=== PATIENT | male | born 1975 | race Caucasian/White ===

== ENCOUNTER 2021-01-28 17:46 | Inpatient (IN) ==
[2021-01-28] MEDS ORDERED: SODIUM CHLORIDE 0.9% 1000ML 1,000 ML IV ONE (19:17)
[2021-01-28] MEDS ORDERED: HYDROcodone/HOMATROPINE SYRUP 5MG/1.5MG 5ML UDP PO STA (19:43)
--- NOTE | 2021-01-28 19:57 | XRay Report ---
XR chest 1V portable HISTORY: SEPSIS COMPARISON: None. FINDINGS: There are patchy hazy bilateral airspace opacities, right greater than left. This is consis tent with a viral pneumonia. The heart is normal in size. No pleural effusions. No pneumothorax. IMPRESSION: Patchy hazy bilateral airspace opacities consistent with a multifocal pneumonia. ACT 112: Negative or not required by law. Electronically signed by: Emiliano Damon M.D. 01/28/2021 7:56 PM
[2021-01-28 19:58] LABS: Basophils # (auto) 0.02 K/uL (0-0.2); Basophils % (auto) 0.2 %; Eosinophils # (auto) 0.03 K/uL (0-0.5); Eosinophils % (auto) 0.4 %; Hematocrit (blood only) 43.3 % (42-52); Hemoglobin 15.8 g/dL (14.0-18.0); Immature Granulocytes # (auto) 0.04 K/uL (0.00-0.02); Immature Granulocytes % (auto) 0.5 %; Lymphocytes # (auto) 1.86 K/uL (1.2-3.4); Lymphocytes % (auto) 22.5 %; Mean Corpuscular Hemoglobin 31.1 pg (25-34); Mean Corpuscular Hgb Conc 36.5 g/dL (32-36); Mean Corpuscular Volume 85.2 fL (80-100); Mean Platelet Volume 9.6 fL (7.4-10.4); Monocytes # (auto) 0.77 K/uL (0.11-0.59); Monocytes % (auto) 9.3 %; Neutrophils # (auto) 5.55 K/uL (1.4-6.5); Neutrophils % (auto) 67.1 %; Platelet Count 245 K/uL (130-400); RDW Coefficient of Variation 12.8 % (11.5-14.5); RDW Standard Deviation 40.3 fL (36.4-46.3); Red Blood Count 5.08 M/uL (4.7-6.1); White Blood Count 8.27 K/uL (4.8-10.8)
[2021-01-28 20:10] LABS: Base Excess VBG 4.3 mEq/L; HCO3 VBG 29 mmol/L; Oxygen Saturation VBG < 60.0 %; PCO2 VBG 45 mmHg (38-50); PO2 VBG 29 mmHg; pH VBG 7.43 (7.36-7.41)
[2021-01-28 20:15] LABS: Alanine Aminotransferase 31 U/L (12-78); Albumin Level 3.4 gm/dl (3.4-5.0); Aspartate Aminotransferase 20 U/L (15-37); BUN Creatinine Ratio 16.7 (10-20); Blood Urea Nitrogen 19 mg/dl (7-18); Calcium 9.2 mg/dl (8.5-10.1); Carbon Dioxide 29 mmol/L (21-32); Chloride 105 mmol/L (98-107); Est GFR (African American) 90.8; Est GFR (Non-African American) 78.3; Glucose 97 mg/dl (70-99); Magnesium 2.4 mg/dl (1.8-2.4); Potassium 3.9 mmol/L (3.5-5.1); Sodium 140 mmol/L (136-145)
[2021-01-28 20:19] LABS: Partial Thromboplastin Ratio 0.9; Partial Thromboplastin Time 24.8 Seconds (21.0-31.0); Prothrombin Time 10.3 Seconds (9.0-12.0)
[2021-01-28 20:20] LABS: Albumin Globulin Ratio 0.8 (0.9-2); Alkaline Phosphatase 62 U/L (45-117); Bilirubin,Total 0.5 mg/dl (0.2-1); Globulin 4.1 gm/dl (2.5-4.0); Total Protein 7.5 gm/dl (6.4-8.2); Troponin I < 0.015 ng/ml (0-0.045)
[2021-01-28] MEDS ORDERED: dexAMETHasone 6 MG in SYRINGE 0 ML IV ONE (20:42)
[2021-01-28] MEDS ORDERED: SODIUM CHLORIDE 0.9% 1000ML 1,000 ML IV STA (20:43)
[2021-01-28] MEDS ORDERED: ONDANSETRON INJ 2 MG/ML 2 ML VIAL IV STA (20:43)
[2021-01-28] MEDS ORDERED: MoRPHine SULFATE 4 MG/ML 1 ML CARP\\VIAL IV STA (20:43)
[2021-01-28] MEDS ORDERED: DEXAMETHASONE SOD INJ 4 MG/ML VIAL ONE (20:45)
[2021-01-28] MEDS ORDERED: OPTIRAY 320 125ml IV ONE (21:47)
[2021-01-29 00:17] LABS: Influenza A virus by PCR Negative (Neg); Influenza B virus by PCR Negative (Neg); RSV by PCR Negative (Neg)
[2021-01-29 00:23] LABS: SARS CoV2 RNA(COVID-19) InHosp POSITIVE (Negative)
--- NOTE | 2021-01-29 02:00 | Emergency Department Note ---
History of Present Illness General Chief Complaint: Shortness of Breath/Dyspnea Stated Complaint: COVID+ ON WEDNESDAY Time Seen by Provider: 01/28/21 19:16 History of Present Illness Provider Complaint: shortness of breath, cough and chest pain Onset (ago): day(s) (11) Severity: moderate Consistency/Duration: + intermittent Maximum Pain Intensity: 7 Current Pain Intensity: 5 Relieved By: + nothing Exacerbated By: + coughing Context: + recent illness (Diagnosed with COVID-19 11 days ago) Associated symptoms: + chest pain, + pain with inspiration, + fever, + cough, + sputum production, + hemoptysis and + nausea/vomiting; no syncope, no abdominal pain and no rash HPI Narrative: Patient reports he has a home pulse oximeter which has been reading below 90% so he decided come to the emergency department. Home Medications Medication Instructions Recorded Confirmed Type albuterol sulfate 2 puff INHALATION QID PRN 01/28/21 01/28/21 History ibuprofen [Advil] 600 - 800 mg PO Q6H PRN 01/28/21 01/28/21 History ondansetron 8 mg TRANSLINGUAL BID PRN 01/28/21 01/28/21 History Allergies Allergy/AdvReac Type Severity Reaction Status Date / Time Penicillins Allergy Severe Hives Verified 01/28/21 22:28 Past Med/Surg History Medical History (Updated 01/29/21 @ 02:00 by Sreedhar Macdonald) No pertinent family history No pertinent past medical history Surgical History (Updated 01/29/21 @ 01:54 by Sreedhar Macdonald) No pertinent past surgical history Social History Smoking Status: Never smoker Feels Safe at Home: Yes Review of Systems A total of 10 systems reviewed and were otherwise negative Physical Exam Vital Signs: Vital Signs - 24 hr 01/28/21 17:54 01/28/21 20:34 01/28/21 20:36 Temperature 36.7 C Temperature Source Oral Pulse Rate 130 H Pulse Rate [Finger ] Pulse Rate from Sp O2 Sensor Respiratory Rate 20 Respiratory Effort / Characteristics Non-Labored Sponta neous Non-Labored Sponta neous Respiratory Depth Normal Respiratory Patter n Regular Blood Pressure 133/81 Blood Pressure [Ri ght Arm] Blood Pressure Linda n 98 Blood Pressure Linda n [Right Arm] Pulse Oximetry 96 87 L Oxygen Delivery Me thod Room Air Room Air Room Air Oxygen Flow Rate Sepsis Recent Feve r Within 48 Hours No Sepsis New/Unexpla ined Change in Men emerald Status No Sepsis Action Take n by Nursing No Action Required 01/28/21 20:46 01/28/21 21:30 01/28/21 21:45 Temperature Temperature Source Pulse Rate Pulse Rate [Finger ] 96 H 95 H Pulse Rate from Sp O2 Sensor Respiratory Rate 23 28 H Respiratory Effort / Characteristics Non-Labored Sponta neous Non-Labored Sponta neous Respiratory Depth Normal Normal Respiratory Patter n Regular Regular Blood Pressure Blood Pressure [Ri ght Arm] 145/92 H 150/96 H Blood Pressure Linda n Blood Pressure Linda n [Right Arm] 109 114 Pulse Oximetry 99 99 Oxygen Delivery Me thod Room Air Nasal Cannula Nasal Cannula Oxygen Flow Rate 2 2 Sepsis Recent Feve r Within 48 Hours Sepsis New/Unexpla ined Change in Men emerald Status Sepsis Action Take n by Nursing 01/28/21 21:50 01/28/21 22:00 01/28/21 22:27 Temperature Temperature Source Pulse Rate 94 H 99 H 93 H Pulse Rate [Finger ] Pulse Rate from Sp O2 Sensor 92 H Respiratory Rate 22 20 23 Respiratory Effort / Characteristics Respiratory Depth Respiratory Patter n Blood Pressure 139/88 Blood Pressure [Ri ght Arm] Blood Pressure Linda n 105 Blood Pressure Linda n [Right Arm] Pulse Oximetry 98 Oxygen Delivery Me thod Nasal Cannula Nasal Cannula Oxygen Flow Rate 2 2 Sepsis Recent Feve r Within 48 Hours Sepsis New/Unexpla ined Change in Men emerald Status Sepsis Action Take n by Nursing 01/28/21 22:30 01/28/21 22:45 01/28/21 23:00 Temperature Temperature Source Pulse Rate 79 79 77 Pulse Rate [Finger ] Pulse Rate from Sp O2 Sensor 81 81 79 Respiratory Rate 24 20 25 H Respiratory Effort / Characteristics Respiratory Depth Respiratory Patter n Blood Pressure 135/90 135/97 149/108 H Blood Pressure [Ri ght Arm] Blood Pressure Linda n 105 109 121 Blood Pressure Linda n [Right Arm] Pulse Oximetry 99 99 99 Oxygen Delivery Me thod Oxygen Flow Rate Sepsis Recent Feve r Within 48 Hours Sepsis New/Unexpla ined Change in Men emerald Status Sepsis Action Take n by Nursing 01/28/21 23:15 01/28/21 23:30 01/28/21 23:45 Temperature Temperature Source Pulse Rate 75 74 81 Pulse Rate [Finger ] Pulse Rate from Sp O2 Sensor 75 77 83 Respiratory Rate 24 23 22 Respiratory Effort / Characteristics Respiratory Depth Respiratory Patter n Blood Pressure 150/101 H 155/110 H 132/98 Blood Pressure [Ri ght Arm] Blood Pressure Linda n 117 125 109 Blood Pressure Linda n [Right Arm] Pulse Oximetry 98 99 99 Oxygen Delivery Me thod Oxygen Flow Rate Sepsis Recent Feve r Within 48 Hours Sepsis New/Unexpla ined Change in Men emerald Status Sepsis Action Take n by Nursing 01/29/21 00:00 01/29/21 00:30 Temperature Temperature Source Pulse Rate 82 83 Pulse Rate [Finger ] Pulse Rate from Sp O2 Sensor 85 84 Respiratory Rate 17 19 Respiratory Effort / Characteristics Respiratory Depth Respiratory Patter n Blood Pressure 112/89 138/93 Blood Pressure [Ri ght Arm] Blood Pressure Linda n 96 108 Blood Pressure Linda n [Right Arm] Pulse Oximetry 98 98 Oxygen Delivery Me thod Oxygen Flow Rate Sepsis Recent Feve r Within 48 Hours Sepsis New/Unexpla ined Change in Men emerald Status Sepsis Action Take n by Nursing Physical Exam: Physical Exam GENERAL: He is oriented to person, place, and time. He appears well-developed and well-nourished. He does not appear distressed. HENT: Exam performed. - Head: Normocephalic and atraumatic. - Right Ear: External ear normal. No mastoid tenderness. - Left Ear: External ear normal. No mastoid tenderness. - Mouth/Throat: The oropharynx is clear and moist. No trismus in the jaw. No dental abscesses or uvula swelling. No oropharyngeal exudate or tonsillar abscesses. EYES: Conjunctivae and EOM are normal. Pupils are equal, round, and reactive to light. Right eye exhibits no discharge. Left eye exhibits no discharge. No scleral icterus. NECK: Normal range of motion. Neck supple. No JVD present. No spinous process tenderness present. No carotid bruit present. No rigidity. No tracheal deviation and normal range of motion present. No Brudzinski's sign and no Kernig's sign noted. CV: Tachycardic rate, regular rhythm, normal heart sounds and intact distal pulses. There is no peripheral edema. Palpable radial pulses bue. PULM/CHEST: Effort normal and breath sounds normal. No respiratory distress. No stridor. He has no wheezes. He has no rales. - Chest Wall: He exhibits no tenderness. ABD: The abdomen is soft. Bowel sounds are normal. He has no distension. No mass is present. There is no tenderness. There is no rebound, no guarding, no Rivera's sign and no tenderness at McBurney's point. Rovsig negative. MUSC/SKEL: Normal range of motion. There is no peripheral edema, tenderness or deformity. LYMPH: No cervical adenopathy. NEURO: He is alert and oriented to person, place, and time. He has normal strength. No cranial nerve deficit or sensory deficit. Coordination and gait normal. GCS eye subscore is 4. GCS verbal subscore is 5. GCS motor subscore is 6. Cerebellar tests wnl. SKIN: Skin is warm and dry. He is not diaphoretic. PSYCH: He has a normal mood and affect. Behavior is normal. Judgment and thought content normal. Course Course 1915: The patient was evaluated in room C5. A complete history and physical exam was performed Cardiac monitoring: An order was placed for continuous cardiac monitoring. The monitor shows a rate of 95 with sinus rhythm Patient was seen in full airborne precautions. Patient was seen in N95's, gloves, gowns, face shield by myself and staff. 2044: Patient had low oxygen saturation on ambulation. Patient was started on supplemental oxygen via nasal cannula which improved his oxygen saturation. Decadron 6 mg IV push ordered for the patient. 2254: Vital signs stable on supplemental oxygen. Labs are within normal limits. Imaging is negative for PE. Patient be admitted to [facility] any hospitalist team Dr. Siu notified. Administered Medications Discontinued Medications Dexamethasone (Dexamethasone Sod Inj 4 Mg/Ml Vial) Confirm Administered Dose 8 mg .ROUTE .STK-MED ONE Stop: 01/28/21 20:46 Last Admin: 01/28/21 20:50 Dose: 6 mg Documented by: [id number] Hydrocodone Bit/Homatropine Methylb (Hydrocodone/Homatropine Syrup 5mg/1.5mg 5ml Udp) 5 ml PO NOW STA Stop: 01/28/21 19:44 Last Admin: 01/28/21 20:31 Dose: 5 ml Documented by: [id number] Sodium Chloride (Nss 1000ml) 1,000 mls @ 999 mls/hr IV .Q1H1M ONE Stop: 01/28/21 20:17 Last Infusion: 01/28/21 21:32 Dose: 0 mls/hr Documented by: [id number] Admin: 01/28/21 20:31 Dose: 999 mls/hr Documented by: [id number] Dexamethasone 6 mg/ Syringe 1.5 mls @ 1 mls/min IV ONE ONE Stop: 01/28/21 20:43 Last Admin: 01/28/21 20:50 Dose: Not Given Documented by: [id number] Sodium Chloride (Nss 1000ml) 1,000 mls @ 999 mls/hr IV .Q1H1M STA Stop: 01/28/21 21:43 Last Admin: 01/28/21 21:22 Dose: Not Given Documented by: [id number] Ioversol (Optiray 320 125ml) 117 ml IV ONCE ONE Stop: 01/28/21 21:48 Last Admin: 01/28/21 21:48 Dose: 117 ml Documented by: [id number] Morphine Sulfate (Morphine Sulfate 4 Mg/Ml 1 Ml Carp\Vial) 4 mg IV NOW STA Stop: 01/28/21 20:44 Last Admin: 01/28/21 20:52 Dose: Not Given Documented by: [id number] Ondansetron HCl (Ondansetron Inj 2 Mg/Ml 2 Ml Vial) 4 mg IV NOW STA Stop: 01/28/21 20:44 Last Admin: 01/28/21 20:56 Dose: 4 mg Documented by: [id number] Medical Decision Making Laboratory Data Result diagrams: 01/28/21 19:44 01/28/21 19:44 Lab Results 01/28/21 01/28/21 01/28/21 Range/Units 19:44 19:44 19:44 WBC 8.27 (4.8-10.8) K/uL RBC 5.08 (4.7-6.1) M/uL Hgb 15.8 (14.0-18.0) g/dL Hct 43.3 (42-52) % MCV 85.2 (80-100) fL MCH 31.1 (25-34) pg MCHC 36.5 H (32-36) g/dL RDW Std Deviation 40.3 (36.4-46.3) fL RDW Coeff of Felicitas 12.8 (11.5-14.5) % Plt Count 245 (130-400) K/uL MPV 9.6 (7.4-10.4) fL Immature Gran % (Auto) 0.5 % Neut % (Auto) 67.1 % Lymph % (Auto) 22.5 % Wilkes % (Auto) 9.3 % Eos % (Auto) 0.4 % Baso % (Auto) 0.2 % Neut # (Auto) 5.55 (1.4-6.5) K/uL Lymph # (Auto) 1.86 (1.2-3.4) K/uL Wilkes # (Auto) 0.77 H (0.11-0.59) K/uL Eos # (Auto) 0.03 (0-0.5) K/uL Baso # (Auto) 0.02 (0-0.2) K/uL Immature Gran # (Auto) 0.04 H (0.00-0.02) K/uL PT 10.3 (9.0-12.0) Seconds INR 1.0 (0.9-1.1) APTT 24.8 (21.0-31.0) Seconds PTT Ratio 0.9 VBG pH 7.43 H (7.36-7.41) VBG pCO2 45 (38-50) mmHg VBG pO2 29 mmHg VBG HCO3 29 mmol/L VBG O2 Saturation < 60.0 % VBG Base Excess 4.3 mEq/L Barometric Pressure 735.4 mm/Hg Sodium (136-145) mmol/L Potassium (3.5-5.1) mmol/L Chloride (98-107) mmol/L Carbon Dioxide (21-32) mmol/L Anion Gap (3-11) BUN (7-18) mg/dl Creatinine (0.6-1.4) mg/dl Est Cr Clr Drug Dosing Est GFR ( Amer) Est GFR (Non-Af Amer) BUN/Creatinine Ratio (10-20) Glucose (70-99) mg/dl Lactate (0.4-2.0) mmol/L Calcium (8.5-10.1) mg/dl Magnesium (1.8-2.4) mg/dl Total Bilirubin (0.2-1) mg/dl AST (15-37) U/L ALT (12-78) U/L Alkaline Phosphatase (45-117) U/L Troponin I (0-0.045) ng/ml Total Protein (6.4-8.2) gm/dl Albumin (3.4-5.0) gm/dl Globulin (2.5-4.0) gm/dl Albumin/Globulin Ratio (0.9-2) Procalcitonin (0-0.5) ng/ml COVID-19 Eval Order SARS-CoV-2 (PCR) (Negative) Influenza Type A (PCR) (Neg) Influenza Type B (PCR) (Neg) RSV (RT-PCR) (Neg) 01/28/21 01/28/21 01/28/21 Range/Units 19:44 19:44 19:44 WBC (4.8-10.8) K/uL RBC (4.7-6.1) M/uL Hgb (14.0-18.0) g/dL Hct (42-52) % MCV (80-100) fL MCH (25-34) pg MCHC (32-36) g/dL RDW Std Deviation (36.4-46.3) fL RDW Coeff of Felicitas (11.5-14.5) % Plt Count (130-400) K/uL MPV (7.4-10.4) fL Immature Gran % (Auto) % Neut % (Auto) % Lymph % (Auto) % Wilkes % (Auto) % Eos % (Auto) % Baso % (Auto) % Neut # (Auto) (1.4-6.5) K/uL Lymph # (Auto) (1.2-3.4) K/uL Wilkes # (Auto) (0.11-0.59) K/uL Eos # (Auto) (0-0.5) K/uL Baso # (Auto) (0-0.2) K/uL Immature Gran # (Auto) (0.00-0.02) K/uL PT (9.0-12.0) Seconds INR (0.9-1.1) APTT (21.0-31.0) Seconds PTT Ratio VBG pH (7.36-7.41) VBG pCO2 (38-50) mmHg VBG pO2 mmHg VBG HCO3 mmol/L VBG O2 Saturation % VBG Base Excess mEq/L Barometric Pressure mm/Hg Sodium 140 (136-145) mmol/L Potassium 3.9 (3.5-5.1) mmol/L Chloride 105 (98-107) mmol/L Carbon Dioxide 29 (21-32) mmol/L Anion Gap 6.0 (3-11) BUN 19 H (7-18) mg/dl Creatinine 1.14 (0.6-1.4) mg/dl Est Cr Clr Drug Dosing Not Reportable Est GFR ( Amer) 90.8 Est GFR (Non-Af Amer) 78.3 BUN/Creatinine Ratio 16.7 (10-20) Glucose 97 (70-99) mg/dl Lactate 1.7 (0.4-2.0) mmol/L Calcium 9.2 (8.5-10.1) mg/dl Magnesium 2.4 (1.8-2.4) mg/dl Total Bilirubin 0.5 (0.2-1) mg/dl AST 20 (15-37) U/L ALT 31 (12-78) U/L Alkaline Phosphatase 62 (45-117) U/L Troponin I < 0.015 (0-0.045) ng/ml Total Protein 7.5 (6.4-8.2) gm/dl Albumin 3.4 (3.4-5.0) gm/dl Globulin 4.1 H (2.5-4.0) gm/dl Albumin/Globulin Ratio 0.8 L (0.9-2) Procalcitonin 0.07 (0-0.5) ng/ml COVID-19 Eval Order SARS-CoV-2 (PCR) (Negative) Influenza Type A (PCR) (Neg) Influenza Type B (PCR) (Neg) RSV (RT-PCR) (Neg) 01/28/21 01/28/21 Range/Units 23:20 23:20 WBC (4.8-10.8) K/uL RBC (4.7-6.1) M/uL Hgb (14.0-18.0) g/dL Hct (42-52) % MCV (80-100) fL MCH (25-34) pg MCHC (32-36) g/dL RDW Std Deviation (36.4-46.3) fL RDW Coeff of Felicitas (11.5-14.5) % Plt Count (130-400) K/uL MPV (7.4-10.4) fL Immature Gran % (Auto) % Neut % (Auto) % Lymph % (Auto) % Wilkes % (Auto) % Eos % (Auto) % Baso % (Auto) % Neut # (Auto) (1.4-6.5) K/uL Lymph # (Auto) (1.2-3.4) K/uL Wilkes # (Auto) (0.11-0.59) K/uL Eos # (Auto) (0-0.5) K/uL Baso # (Auto) (0-0.2) K/uL Immature Gran # (Auto) (0.00-0.02) K/uL PT (9.0-12.0) Seconds INR (0.9-1.1) APTT (21.0-31.0) Seconds PTT Ratio VBG pH (7.36-7.41) VBG pCO2 (38-50) mmHg VBG pO2 mmHg VBG HCO3 mmol/L VBG O2 Saturation % VBG Base Excess mEq/L Barometric Pressure mm/Hg Sodium (136-145) mmol/L Potassium (3.5-5.1) mmol/L Chloride (98-107) mmol/L Carbon Dioxide (21-32) mmol/L Anion Gap (3-11) BUN (7-18) mg/dl Creatinine (0.6-1.4) mg/dl Est Cr Clr Drug Dosing Est GFR ( Amer) Est GFR (Non-Af Amer) BUN/Creatinine Ratio (10-20) Glucose (70-99) mg/dl Lactate (0.4-2.0) mmol/L Calcium (8.5-10.1) mg/dl Magnesium (1.8-2.4) mg/dl Total Bilirubin (0.2-1) mg/dl AST (15-37) U/L ALT (12-78) U/L Alkaline Phosphatase (45-117) U/L Troponin I (0-0.045) ng/ml Total Protein (6.4-8.2) gm/dl Albumin (3.4-5.0) gm/dl Globulin (2.5-4.0) gm/dl Albumin/Globulin Ratio (0.9-2) Procalcitonin (0-0.5) ng/ml COVID-19 Eval Order CovFluRsv at [facility] SARS-CoV-2 (PCR) POSITIVE A* (Negative) Influenza Type A (PCR) Negative (Neg) Influenza Type B (PCR) Negative (Neg) RSV (RT-PCR) Negative (Neg) Imaging Data Radiologist's Impression: XR chest 1V portable HISTORY: SEPSIS COMPARISON: None. FINDINGS: There are patchy hazy bilateral airspace opacities, right greater than left. This is consistent with a viral pneumonia. The heart is normal in size. No pleural effusions. No pneumothorax. IMPRESSION: Patchy hazy bilateral airspace opacities consistent with a multifocal pneumonia. ACT 112: Negative or not required by law. Electronically signed by: Emiliano Damon M.D. 01/28/2021 7:56 PM Dictated: 01/28/211954Transcribed: 01/28/211954 Preliminary Findings Only See Final Report For Complete Findings CTA CHEST: No pulmonary embolus identified. No aortic aneurysm or dissection. Patchy groundglass opacities and densities throughout the lungs, concerning for Covid 19 infection. Trace left pleural effusion. Nonspecific mildly prominent mediastinal and hilar lymph nodes. Radiologist: Tristian Giles M.D. Study ready at 21:56 and initial results transmitted at 22:00 ECG Data Interpretation: EKG at 2028: Sinus rhythm with rate 95. CO and QTc intervals are within normal limits. QRS 72. No ST elevation or ST depression. T wave inversion in lead III only. [facility] Narrative 1915: The patient was evaluated in room C5. A complete history and physical exam was performed Cardiac monitoring: An order was placed for continuous cardiac monitoring. The monitor shows a rate of 95 with sinus rhythm Patient was seen in full airborne precautions. Patient was seen in N95's, gloves, gowns, face shield by myself and staff. 2044: Patient had low oxygen saturation on ambulation. Patient was started on supplemental oxygen via nasal cannula which improved his oxygen saturation. Decadron 6 mg IV push ordered for the patient. 2254: Vital signs stable on supplemental oxygen. Labs are within normal limits. Imaging is negative for PE. Patient be admitted to [facility] hospitalist team Dr. Siu notified. Impression & Plan Pneumonia due to 2019 novel coronavirus, Hypoxia Critical Care Time Critical Care Time: Yes Total Critical Care Time: 43 I have personally spent greater than 43 minutes of critical care time in the direct management of this patient. This includes bedside care, interpretation of diagnostic studies, and testing, discussion with consultants, patient, and family members, and other required patient management activities. This 43 minutes is in excess of all separately billable procedures. Discharge Plan Visit Data Chief Complaint: Shortness of Breath/Dyspnea Stated Complaint: COVID+ ON WEDNESDAY ED Provider: Sreedhar Macdonald Discharge Problem: Pneumonia due to 2019 novel coronavirus, Hypoxia Patient Disposition: Admitted As Inpatient Forms Stand Alone Forms: [facility] Prescriptions Prescriptions: No Action ondansetron 8 mg tablet,disintegrating 8 mg translingual BID PRN (Reason: Nausea) RF: 0 ibuprofen [Advil] 200 mg Tablet 600 - 800 mg PO Q6H PRN (Reason: headache/fever) RF: 0 albuterol sulfate 90 mcg/actuation HFA aerosol inhaler 2 puff INHALATION QID PRN (Reason: Wheezing) RF: 0 Referrals Referrals: Alejandro Mir [Primary Care Provider] -
--- NOTE | 2021-01-29 02:16 | History & Physical Report ---
Date of Service January 29, 2021 Assessment & Plan (1) Pneumonia due to 2019 novel coronavirus: COVID-19 pneumonia with hypoxia- Dexamethasone 6 mg IV every morning Duonebs every 4 hours while awake and every 2 hours when necessary. Guaifenesin extended release 600 mg p.o. twice daily Zinc sulfate 220 mg p.o. every morning Vitamin D 2000 international units p.o. every morning Azithromycin 500 mg IV daily Hycodan syrup, 5 mL p.o. every 4 hours as needed cough Nasal cannula oxygen, titrate to keep pulse ox 94 to 95% Present on Admission?: Yes (2) Hypoxia: See above Present on Admission?: Yes History of Present Illness Chief Complaint: Patient presents to the emergency department with complaint of cough, shortness of breath and chest pain with inspiration Primary Care Provider: Alejandro Mir The patient is a 45-year-old male who was diagnosed with COVID-19 pneumonia 11 days ago, was placed on a course of steroids, antibiotic and inhaler. He reports that he briefly had some improvement, but never returned to normalcy, and presents to the emergency department today with persistent cough, pleuritic chest pain and shortness of breath. Allergies Allergy/AdvReac Type Severity Reaction Status Date / Time Penicillins Allergy Severe Hives Verified 01/28/21 22:28 Home Medications Medication Instructions Recorded Confirmed Type albuterol sulfate 2 puff INHALATION QID PRN 01/28/21 01/28/21 History ibuprofen [Advil] 600 - 800 mg PO Q6H PRN 01/28/21 01/28/21 History ondansetron 8 mg TRANSLINGUAL BID PRN 01/28/21 01/28/21 History Past Med/Surg History Medical History (Updated 01/29/21 @ 02:00 by [facility]) No pertinent family history No pertinent past medical history Surgical History (Updated 01/29/21 @ 01:54 by [facility]) No pertinent past surgical history Social History Smoking Status: Never smoker Feels Safe at Home: Yes Review of Systems Review of Systems: The patient denies palpitations, lower extremity swelling, sore throat, fevers, chills, sweats, nausea, vomiting, diarrhea , constipation, abdominal pain, pelvic pain, blood in urine or stool, dysuria, urinary frequency or urgency, lightheadedness, dizziness, headache, memory loss, loss of consciousness, rash, abnormal bruising or bleeding, imbalance, focal weakness, numbness or tingling in arms or legs, generalized arthralgias or myalgias, back or neck pain, or night sweats. The review of systems is otherwise negative other than for that already noted above, and at least 10 systems have been reviewed. Physical Exam Physical Exam: The patient is awake, alert and oriented 3, well developed and well nourished, normocephalic and atraumatic, lying in bed and in no acute distress. HEENT--PERRL, EOMI, mucous membranes and oropharynx normal. Neck--supple. No JVD. No bruits. Thyroid normal, trachea midline, no adenopathy. Heart--normal S1 and S2. No murmurs, rubs or gallops. Lungs--clear bilaterally, no respiratory distress, no accessory muscle use. Abdomen--normal bowel sounds and soft. Nontender. Nondistended. Extremities--no cyanosis or clubbing. No edema. Dermatologic--normal skin turgor, normal color, no abnormal lymph nodes, no rash. Neurologic--cranial nerves II through XII grossly intact. Rheumatologic--normal range of motion. Psychiatric--normal affect. Results & Data Results & Data ([facility]) Vital Signs (Past 12 Hours) Vital Signs Temp Pulse Pulse Resp BP BP Pulse Ox 01/29/21 00:30 83 19 138/93 98 01/29/21 00:00 82 17 112/89 98 01/28/21 23:45 81 22 132/98 99 01/28/21 23:30 74 23 155/110 H 99 01/28/21 23:15 75 24 150/101 H 98 01/28/21 23:00 77 25 H 149/108 H 99 01/28/21 22:45 79 20 135/97 99 01/28/21 22:30 79 24 135/90 99 01/28/21 22:27 93 H 23 139/88 98 01/28/21 22:00 99 H 20 01/28/21 21:50 94 H 22 01/28/21 21:30 95 H 28 H 150/96 H 99 01/28/21 20:46 96 H 23 145/92 H 99 01/28/21 20:36 87 L 01/28/21 17:54 98.1 F 130 H 20 133/81 96 Laboratory Results Laboratory Results WBC 8.27 K/uL (4.8-10.8) 01/28/21 19:44 RBC 5.08 M/uL (4.7-6.1) 01/28/21 19:44 Hgb 15.8 g/dL (14.0-18.0) 01/28/21 19:44 Hct 43.3 % (42-52) 01/28/21 19:44 MCV 85.2 fL (80-100) 01/28/21 19:44 MCH 31.1 pg (25-34) 01/28/21 19:44 MCHC 36.5 g/dL (32-36) H 01/28/21 19:44 RDW Std Deviation 40.3 fL (36.4-46.3) 01/28/21 19:44 RDW Coeff of Felicitas 12.8 % (11.5-14.5) 01/28/21 19:44 Plt Count 245 K/uL (130-400) 01/28/21 19:44 MPV 9.6 fL (7.4-10.4) 01/28/21 19:44 Immature Gran % (Auto) 0.5 % 01/28/21 19:44 Neut % (Auto) 67.1 % 01/28/21 19:44 Lymph % (Auto) 22.5 % 01/28/21 19:44 [place]ville % (Auto) 9.3 % 01/28/21 19:44 Eos % (Auto) 0.4 % 01/28/21 19:44 Baso % (Auto) 0.2 % 01/28/21 19:44 Neut # (Auto) 5.55 K/uL (1.4-6.5) 01/28/21 19:44 Lymph # (Auto) 1.86 K/uL (1.2-3.4) 01/28/21 19:44 Granville # (Auto) 0.77 K/uL (0.11-0.59) H 01/28/21 19:44 Eos # (Auto) 0.03 K/uL (0-0.5) 01/28/21 19:44 Baso # (Auto) 0.02 K/uL (0-0.2) 01/28/21 19:44 Immature Gran # (Auto) 0.04 K/uL (0.00-0.02) H 01/28/21 19:44 PT 10.3 Seconds (9.0-12.0) 01/28/21 19:44 INR 1.0 (0.9-1.1) 01/28/21 19:44 APTT 24.8 Seconds (21.0-31.0) 01/28/21 19:44 PTT Ratio 0.9 01/28/21 19:44 VBG pH 7.43 (7.36-7.41) H 01/28/21 19:44 VBG pCO2 45 mmHg (38-50) 01/28/21 19:44 VBG pO2 29 mmHg 01/28/21 19:44 VBG HCO3 29 mmol/L 01/28/21 19:44 VBG O2 Saturation < 60.0 % 01/28/21 19:44 VBG Base Excess 4.3 mEq/L 01/28/21 19:44 Barometric Pressure 735.4 mm/Hg 01/28/21 19:44 Sodium 140 mmol/L (136-145) 01/28/21 19:44 Potassium 3.9 mmol/L (3.5-5.1) 01/28/21 19:44 Chloride 105 mmol/L (98-107) 01/28/21 19:44 Carbon Dioxide 29 mmol/L (21-32) 01/28/21 19:44 Anion Gap 6.0 (3-11) 01/28/21 19:44 BUN 19 mg/dl (7-18) H 01/28/21 19:44 Creatinine 1.14 mg/dl (0.6-1.4) 01/28/21 19:44 Est Cr Clr Drug Dosing Not Reportable 01/28/21 19:44 Est GFR ( Amer) 90.8 01/28/21 19:44 Est GFR (Non-Af Amer) 78.3 01/28/21 19:44 BUN/Creatinine Ratio 16.7 (10-20) 01/28/21 19:44 Glucose 97 mg/dl (70-99) 01/28/21 19:44 Lactate 1.7 mmol/L (0.4-2.0) 01/28/21 19:44 Calcium 9.2 mg/dl (8.5-10.1) 01/28/21 19:44 Magnesium 2.4 mg/dl (1.8-2.4) 01/28/21 19:44 Total Bilirubin 0.5 mg/dl (0.2-1) 01/28/21 19:44 AST 20 U/L (15-37) 01/28/21 19:44 ALT 31 U/L (12-78) 01/28/21 19:44 Alkaline Phosphatase 62 U/L (45-117) 01/28/21 19:44 Troponin I < 0.015 ng/ml (0-0.045) 01/28/21 19:44 Total Protein 7.5 gm/dl (6.4-8.2) 01/28/21 19:44 Albumin 3.4 gm/dl (3.4-5.0) 01/28/21 19:44 Globulin 4.1 gm/dl (2.5-4.0) H 01/28/21 19:44 Albumin/Globulin Ratio 0.8 (0.9-2) L 01/28/21 19:44 Procalcitonin 0.07 ng/ml (0-0.5) 01/28/21 19:44 COVID-19 Eval Order CovFluRsv at [facility] 01/28/21 23:20 SARS-CoV-2 (PCR) POSITIVE (Negative) A* 01/28/21 23:20 Influenza Type A (PCR) Negative (Neg) 01/28/21 23:20 Influenza Type B (PCR) Negative (Neg) 01/28/21 23:20 RSV (RT-PCR) Negative (Neg) 01/28/21 23:20 Diagnostic Findings [facility], [phone] XRay Report Patient: JESSICA CAMPBELLAdmit Date: 01/28/21MR#: [id number]: [id number] [facility] ID:[id number]: Date: 1975City Zip: [place] [address]Ivr: 45Location: EDSex: MRoom/Bed:Att Phy:Diagnosis: COVID+ ON Phy: PCP,NOService Date: 01/28/21Fam Phy:Interpreting Phy: Emiliano Damon MDAdmit Phy: Ordering Phy: Sreedhar Macdonald MD cc: ~ XR chest 1V portable HISTORY: SEPSIS COMPARISON: None. FINDINGS: There are patchy hazy bilateral airspace opacities, right greater than left. This is consistent with a viral pneumonia. The heart is normal in size. No pleural effusions. No pneumothorax. IMPRESSION: Patchy hazy bilateral airspace opacities consistent with a multifocal pneumonia. ACT 112: Negative or not required by law. Electronically signed by: Emiliano Damon M.D. 01/28/2021 7:56 PM Dictated: 01/28/211954Transcribed: 01/28/211954 [facility] Patient: JESSICA CAMPBELL (Male) : 79 Status: ER Date: 01/28/21 21:49 Room #: History: SOB COVID + Slices: 764 Priors: Tech: Jason Hunt @ [id number] Exams: CTA CHEST Contrast: IV Amt: 117 Accession Numbers: [id number] Preliminary Findings Only See Final Report For Complete Findings CTA CHEST: No pulmonary embolus identified. No aortic aneurysm or dissection. Patchy groundglass opacities and densities throughout the lungs, concerning for Covid 19 infection. Trace left pleural effusion. Nonspecific mildly prominent mediastinal and hilar lymph nodes. Radiologist: Tristian Giles M.D. Study ready at 21:56 and initial results transmitted at 22:00 *This report constitutes a preliminary interpretation only. Non-acute findings felt to be unrelated to the clinical presentation may not be discussed in this report. The study will be interpreted and a final report will be generated by the local Radiologist the following shift. To reach the hospital radiology department call [phone]. If a discrepancy is found between the preliminary and final interpretations of this study, please notify us via our Client Portal at [email or web address] under QA Exams.You can also fax this report with a description of the discrepancy, or include the final report, to our daytime fax number [phone].If faxing, please indicate the severity of discrepancy using one of the following categories: [ ] 1 - Agree/Informational [ ] 2 - Unlikely to Affect Management [ ] 3 - Possible Eventual Change of Management [ ] 4 - Probable Immediate Change of Management For all other patient related information, please fax us at [phone]. [id number] Code Status & VTE Plan Code Status Full code VTE Prophylaxis Plan VTE Prophylaxis will be ordered: Yes PG Care Time/CCT Total # of Minutes Spent Total Time Spent with Patient: Total time spent is greater than 50% in coordination of care (as documented) at patient's floor/unit and/or counseling patient: Coding Level of Care Code 52648 Initial Inpt Care Lvl 2 Diagnoses Pneumonia due to 2019 novel coronavirus U07.1; J12.82 Hypoxia R09.02
--- NOTE | 2021-01-29 03:01 | Billing Data ---
Date of Service January 29, 2021 Coding Level of Care Code 43560 Initial Inpt Care Lvl 2
[2021-01-29] MEDS ORDERED: ONDANSETRON INJ 2 MG/ML 2 ML VIAL IV PRN (04:23)
[2021-01-29] MEDS ORDERED: HYDROcodone/HOMATROPINE SYRUP 5MG/1.5MG 5ML UDP PO PRN (04:23)
[2021-01-29] MEDS ORDERED: ALBUT/IPRATROP 3MG/0.5MG NEB 3 ML VIAL NEB SCH (07:00)
--- NOTE | 2021-01-29 08:20 | CT Scan Report ---
CT ANGIOGRAPHY OF THE CHEST, PULMONARY EMBOLUS PROTOCOL CLINICAL HISTORY: Cough. Shortness of breath. Pain with inspiration. COMPARISON STUDY: Chest radiograph performed earlier today. TECHNIQUE: Following IV administration of 117 mL of Optiray-320, helical axial images of the chest we re obtained utilizing the pulmonary embolus protocol. Maximal intensity projections and sagittal and coronal reformats were viewed on an independent 3D workstation. IV contrast was administered withou t complication. Automated exposure control was utilized for the study. A dose lowering technique wa s utilized adhering to the principles of ALARA. CT DOSE: 451.98 mGy.cm FINDINGS: No pulmonary emboli are identified. There is no thoracic aortic dissection. The size of th e heart is normal. There is no pericardial effusion. No pneumothorax or pleural effusion is noted. Mo derate multifocal groundglass opacities throughout the lungs are noted. There is no cavitation. Bony thorax is unremarkable. Visualized portions of the upper abdomen are unremarkable. IMPRESSION: 1. No pulmonary emboli identified. 2. Ground glass opacities throughout the lungs suggestive of viral pneumonia. ACT 112: Negative or not required by law. Electronically signed by: Aguila Whelan M.D. 01/29/2021 8:18 AM
[2021-01-29 09:23] LABS: Appearance Urine Clear (Clear); Bacteria Urine Automated Negative (Negative); Bilirubin Urine Negative (Negative); Blood Urine Negative (Negative); Color Urine Yellow; Glucose Urine UA Negative (Negative); Ketones Urine Negative (Negative); Leukocyte Esterase Urine Negative (Negative); Nitrite Urine Negative (Negative); Protein Urine Trace (Negative); RBC Urine Automated 0-4 /hpf (0-4); Specific Gravity Urine 1.041 (1.000-1.030); Urobilinogen Urine Negative (Negative); pH Urine 5.5 (4.5-7.5)
[2021-01-29] MEDS ORDERED: ALBUT/IPRATROP 3MG/0.5MG NEB 3 ML VIAL NEB PRN (09:24)
[2021-01-29] MEDS: dexAMETHasone 6 MG in SYRINGE 0 ML IV SCH (09:46)
[2021-01-29] MEDS: AZITHROMYCIN 500 MG in DEXTROSE 5% 250 ML IV SCH (09:47)
[2021-01-29] MEDS: ENOXAPARIN INJ 40 MG/0.4 ML SYR SQ SCH ×2 (09:47→20:37)
[2021-01-29] MEDS: CHOLECALCIFEROL 1,000 UNITS 25 MCG TAB PO SCH (09:47)
[2021-01-29] MEDS: ZINC SULFATE 220 MG CAPSULE PO SCH (09:47)
--- NOTE | 2021-01-29 12:57 | Electrocardiogram Report ---
Test Reason : Blood Pressure : / mmHG Vent. Rate : 095 BPM Atrial Rate : 095 BPM P-R Int : 114 ms QRS Dur : 072 ms QT Int : 342 ms P-R-T Axes : 044 012 -03 degrees QTc Int : 429 ms Poor data quality, interpretation may be adversely affected Normal sinus rhythm Possible Left atrial enlargement Borderline ECG No previous ECGs available Confirmed by Alex Stone ([id number]) on 01/29/2021 12:57:11 PM Referred By: REFERRED SELF Confirmed By:Pete Stone
--- NOTE | 2021-01-29 13:33 | Electrocardiogram Report ---
Test Reason : Blood Pressure : / mmHG Vent. Rate : 065 BPM Atrial Rate : 065 BPM P-R Int : 120 ms QRS Dur : 092 ms QT Int : 394 ms P-R-T Axes : 033 013 004 degrees QTc Int : 409 ms Normal sinus rhythm Normal ECG When compared with ECG of 28-JAN-2021 20:29, (unconfirmed) Nonspecific T wave abnormality no longer evident in Lateral leads Confirmed by Alex Stone ([id number]) on 01/29/2021 1:32:43 PM Referred By: REFERRED SELF Confirmed By:Pete Stone
--- NOTE | 2021-01-29 19:11 | History & Physical Bridge Note ---
Date of Service January 29, 2021 History & Physical Bridge Note I have examined the patient, reviewed the History & Physical and in the interval since the performance of the History & Physical I have noted the following changes of clinical significance: Pt feels improved since admission but still a dry cough and SOB with exertion in the room. He did take a shower off O2 and felt SOB. No CP, no further N/V/D. On RA at rest. Vitals reviewed NAD, AAOx3 Anicteric sclerae RRR no mgr Mild crackles lower and middle lung garcia, otherwise clear, unlabored breathing, +cough Abd +BS soft NT ND Ext no edema or calf tenderness Skin no rashes Labs and RADS reviewed 45 yo male here with COVID PNA and acute respiratory failure with hypoxia, no PE continue decadron, make nebs prn continue O2 with exertion add Lovenox SQ for DVT proph
[2021-01-29] MEDS: ACETAMINOPHEN 325 MG TAB PO PRN (20:38)
[2021-01-30 07:53] LABS: Basophils # (auto) 0.01 K/uL (0-0.2); Basophils % (auto) 0.2 %; Eosinophils # (auto) 0.02 K/uL (0-0.5); Eosinophils % (auto) 0.3 %; Hematocrit (blood only) 40.1 % (42-52); Hemoglobin 13.7 g/dL (14.0-18.0); Immature Granulocytes # (auto) 0.04 K/uL (0.00-0.02); Immature Granulocytes % (auto) 0.7 %; Lymphocytes # (auto) 1.51 K/uL (1.2-3.4); Lymphocytes % (auto) 25.1 %; Mean Corpuscular Hemoglobin 29.7 pg (25-34); Mean Corpuscular Hgb Conc 34.2 g/dL (32-36); Mean Platelet Volume 9.6 fL (7.4-10.4); Monocytes # (auto) 0.67 K/uL (0.11-0.59); Monocytes % (auto) 11.1 %; Neutrophils # (auto) 3.76 K/uL (1.4-6.5); Neutrophils % (auto) 62.6 %; Platelet Count 234 K/uL (130-400); RDW Coefficient of Variation 12.8 % (11.5-14.5); RDW Standard Deviation 40.8 fL (36.4-46.3); Red Blood Count 4.61 M/uL (4.7-6.1); White Blood Count 6.01 K/uL (4.8-10.8)
[2021-01-30 08:25] LABS: Albumin Level 2.8 gm/dl (3.4-5.0); BUN Creatinine Ratio 21.7 (10-20); Calcium 8.7 mg/dl (8.5-10.1); Creatinine Clr Calc Pharmacy 99.5 ml/min; Est GFR (African American) 103.9; Est GFR (Non-African American) 89.6; Phosphorus 3.5 mg/dl (2.5-4.9); Potassium 4.2 mmol/L (3.5-5.1)
[2021-01-30] MEDS: CHOLECALCIFEROL 1,000 UNITS 25 MCG TAB PO SCH (10:33)
[2021-01-30] MEDS: ENOXAPARIN INJ 40 MG/0.4 ML SYR SQ SCH (10:33)
[2021-01-30] MEDS: dexAMETHasone 6 MG in SYRINGE 0 ML IV SCH (10:34)
[2021-01-30] MEDS: ZINC SULFATE 220 MG CAPSULE PO SCH (10:34)
[2021-01-30] MEDS: AZITHROMYCIN 500 MG in DEXTROSE 5% 250 ML IV SCH (10:34)
[2021-01-30] MEDS: ACETAMINOPHEN 325 MG TAB PO PRN (10:44)
--- NOTE | 2021-01-30 15:09 | Discharge Summary ---
Date of Service January 30, 2021 Admission HPI Per Admitting Provider The patient is a 45-year-old male who was diagnosed with COVID-19 pneumonia 11 days ago, was placed on a course of steroids, antibiotic and inhaler. He reports that he briefly had some improvement, but never returned to normalcy, and presents to the emergency department today with persistent cough, pleuritic chest pain and shortness of breath. Principal Diagnosis COVID-19 Pneumonia, Hypoxia Discharge Exam Constitutional WD/WN, vitals as above Eyes + anicteric sclerae Neck trachea midline, no thyromegaly Respiratory normal respiratory effort Auscultation: + crackles (mild at lower lung garcia); no rhonchi and no wheezes Cardiovascular RRR, no murmur, no edema Extremities: no calf tenderness Chest (Breasts) Chest: normal inspection of chest Gastrointestinal (Abdomen) normal bowel sounds, soft, nontender, no hepatosplenomegaly Musculoskeletal Extremities: extremities normal to inspection; no cyanosis and no clubbing Skin no rashes, warm and dry Neurologic moves all extremities and awake; no focal motor deficits Psychiatric A+Ox3, euthymic affect Lymphatic no lymphedema Discharge Data Allergies Allergy/AdvReac Type Severity Reaction Status Date / Time Penicillins Allergy Severe Hives Verified 01/28/21 22:28 Consultations 01/28/21 22:51 ED Decision to Admit Stat Ordered Studies 01/28/21 19:17 CT angio chest PE protocol Urgent CXR Hospital Course (1) Pneumonia due to 2019 novel coronavirus: COVID-19 pneumonia with hypoxia- CXR and CTA Chest with multifocal PNA, neg for PE. Was requiring O2 with ambulation on admission and now improved, passed 2 step wlk test Feels much improved on decadron and azithro continue 10 day course of decadron po at home, finish out 5 day course of azithro continue vit D if desired dc to home precautions given to return if worsens (2) Hypoxia: See above Proph-Lovenox SQ Dispo-dc to home Total Time Total Time Spent Total Time Spent (In Minutes): 35 min Total Time Includes: Examination of the Patient, Discharge Planning and Medication Reconciliation Discharge Plan Discharge Items Patient Disposition: Home - Self-Care Reason For Visit: COVID-19 BRONCHOPNEUMONIA WITH HYPOXIA Discharge Diagnosis: COVID-19 Pneumonia, Hypoxia Condition on Discharge: Good Activity: As commented below Bathing: No limitations Exercise/Sports: Gradually increase as tolerated Exercise Comment: after recovery from COVID Non-emergency contact: Primary Care Provider Call non-emergency contact if: you have any medication questions and your symptoms worsen Follow-up/Referrals: Alejandro Mir [Primary Care Provider] - (Follow up within 1-2 weeks-can be a tele-health visit.) Diet: Regular Addtl Attending Provider Instructions: Please finish out a course of dexamethasone 6mg once daily x 7 more days. You should also finish out a course of azithromycin 250mg once daily x 3 more days. If you develop worsening shortness of breath, chest pains, leg pain or swelling, or any other acute concerns, please return to the hospital. Follow up with your PCP within 1-2 weeks. You should have a repeat chest xray in 3-4 weeks as an outpatient to ensure your pneumonia is resolving. Pending Studies at Discharge: Yes Stand-Alone Forms: My [facility] Medications and DC Order Prescriptions: New cholecalciferol (vitamin D3) 25 mcg (1,000 unit) Capsule 2,000 unit PO QAM Qty: 30 RF: 0 dexamethasone 6 mg tablet 6 mg PO DAILY Qty: 7 RF: 0 azithromycin 250 mg tablet 250 mg PO DAILY Qty: 3 RF: 0 Continued ondansetron 8 mg tablet,disintegrating 8 mg translingual BID PRN (Reason: Nausea) RF: 0 ibuprofen [Advil] 200 mg Tablet 600 - 800 mg PO Q6H PRN (Reason: headache/fever) RF: 0 albuterol sulfate 90 mcg/actuation HFA aerosol inhaler 2 puff INHALATION QID PRN (Reason: Wheezing) RF: 0 Discharge Orders: Discharge Order (Routine); Ordered 01/30/21 Ordered By: Hannah Kevin Admission Data Admit Date/Time: 01/29/21 02:15 Attending Provider: Hannah Kevin Admit Provider: Dayron Briones Primary Care Provider: Alejandro Mir Other Providers: Dayron Briones Coding Level of Care Code D/C Day Management >30 mins Diagnoses Pneumonia due to 2019 novel coronavirus U07.1; J12.82 Hypoxia R09.02
== END 2021-01-30 16:30 | disposition home or self-care (01) | DRG 177 ==
LOC: ED 17:46 → SUATTDRO 01-29 02:15 → 2S 01-29 02:15